=== PATIENT | male | born 1970 | race Caucasian/White ===

== ENCOUNTER 2023-04-17 12:39 | Inpatient (IN) | payer OTHER ==
[2023-04-17] VITALS (13 sets, daily range): BP systolic 94–118; BP diastolic 49–76; PULSE 58–93; RESP 18–32; TEMP 96.8–97.9; O2SAT 89–99
[~2023-04-17] VITALS: Ht 177.8 cm; Wt 120.0 kg
[2023-04-17] MEDS ORDERED: FUROSEMIDE 40 MG/4 ML VIAL IV ONE (13:00)
[2023-04-17] MEDS ORDERED: AZITHROMYCIN 500MG/ 250ML 250 ML IV ONE (13:00)
[2023-04-17] MEDS ORDERED: cefTRIAXone 1GM/50ML D5W 50 ML IV ONE (13:00)
[2023-04-17] MEDS ORDERED: SODIUM CHLORIDE 0.9% 1,000 ML IV ONE ×2 (13:00)
[2023-04-17] MEDS ORDERED: MIDAZOLAM DRIP 50 mg/50mL 50 ML IV ONE (13:07)
[2023-04-17] MEDS ORDERED: ETOMIDATE (2MG/ML) 20ML VIAL IV ONE ×2 (13:07→13:30)
[2023-04-17] MEDS ORDERED: SUCCINYLCHOLINE CHLORIDE 20 MG/ML 10ML VIAL IV ONE ×2 (13:08→13:30)
[2023-04-17] MEDS: MIDAZOLAM DRIP 50 mg/50mL 50 ML IV SCH ×2 (13:21→22:42)
[2023-04-17 13:53] LABS: Base Excess -10.2 mmol/L (-2.0-2.0)
[2023-04-17 14:01] LABS: Albumin 2.2 g/dL (3.4-5.0); BUN/Creatinine Ratio 13.3 (10.0-20.0); Calcium 7.4 mg/dL (8.5-10.1); Potassium 4.8 mmol/L (3.5-5.1)
[2023-04-17 14:04] LABS: Bilirubin, Total 3.4 mg/dL (0.2-1.0); Total Protein 7.5 g/dL (6.4-8.2)
[2023-04-17 14:05] LABS: Lactic Acid w/Reflex 3.3 mmol/L (0.4-2.0)
[2023-04-17 14:06] LABS: Basophils # (auto) 0 10 ^3/uL (0-0.2); Eosinophils # (auto) 0 10 ^3/uL (0-0.8); Lymphocytes # (auto) 0.2 10 ^3/uL (0.4-5.4); Mean Corpuscular Hgb Conc. 29.8 g/dL (32.0-36.0)
[2023-04-17 14:08] LABS: Basophils % (auto) 0.2 % (0.0-2.0); Hematocrit 39.6 % (41.0-53.0); Hemoglobin 11.8 g/dL (13.5-17.5); Lymphocytes % (auto) 0.8 % (10.0-50.0); Mean Corpuscular Hemoglobin 25.9 pg (28.0-32.0); Mean Corpuscular Volume 86.8 fL (80.0-100.0); Monocytes # (auto) 0.5 10 ^3/uL (0-1.3); Monocytes % (auto) 2.4 % (0.0-12.0); Neutrophils # (auto) 20.8 10 ^3/uL (1.6-8.6); Neutrophils % (auto) 96.6 % (37.0-80.0); Red Blood Cells 4.56 10^6/uL (4.5-5.90); White Blood Cell 21.5 10^3/uL (4.4-10.8)
[2023-04-17 14:37] LABS: Base Excess -9.5 mmol/L (-2.0-2.0)
[2023-04-17 15:08] LABS: Urine Bacteria FEW /hpf (None Seen); Urine Blood 1+ /uL (Negative); Urine Clarity Clear (Clear); Urine Color PINK (Yellow); Urine Hyaline Cast FEW /lpf (0 - 2); Urine Protein, UAD 2+ (Negative); Urine WBC 3 /hpf (0 - 3); Urine pH 5.5 (5.0-8.0)
[2023-04-17 15:15] LABS: INR 1.66 (0.9-1.15); Partial Thromboplastin Time 34.4 SEC (24.5-34.5); Prothrombin Time 16.9 sec (9.3-11.8)
[2023-04-17] MEDS: NOREPINEPHRINE 8 MG/250ML KIT 250 ML IV SCH (15:15)
[2023-04-17] MEDS ORDERED: NOREPINEPHRINE 8 MG/250ML KIT 250 ML IV ONE (15:15)
[2023-04-17 15:22] LABS: Alcohol, Urine < 3.0 mg/dL (0-10); Barbiturate Scree,Urine NEGATIVE (NEGATIVE); Benzodiazephine Screen, Urine NEGATIVE (NEGATIVE); Cocaine Screen, Urine NEGATIVE (NEGATIVE); Opiate Scree,Urine NEGATIVE (NEGATIVE); Phencyclidine Screen, Urine NEGATIVE (NEGATIVE)
[2023-04-17 15:28] LABS: Red Cell Distribution Width 20.9 % (11.8-14.3)
[2023-04-17] MEDS ORDERED: HEPARIN SODIUM (PORCINE) 5000 UNITS/ML 1ML VIAL ONE (15:29)
[2023-04-17] MEDS: DOPamine 1600MCG/ML D5W 250 ML IV SCH ×2 (15:30→22:43)
[2023-04-17 15:31] LABS: Amphetamine Screen, Urine POSITIVE (NEGATIVE); Cannabinoid Screen, Urine POSITIVE (NEGATIVE)
[2023-04-17] MEDS: EPINEPHrine HCL 250 ML IV SCH ×2 (15:33→22:46)
[2023-04-17] MEDS ORDERED: EPINEPHrine HCL 250 ML IV ONE (15:33)
[2023-04-17] MEDS ORDERED: DOBUTamine 1000MCG/ML 250 ML IV ONE (16:00)
[2023-04-17] MEDS ORDERED: IOHEXOL 350 MG/ML 100ML IJ ONE (16:31)
[2023-04-17 16:41] LABS: Anisocytosis Slight; Platelet Estimate Adequate
[2023-04-17] MEDS ORDERED: ATOR40TA52 PO (17:03)
[2023-04-17] MEDS ORDERED: EMPA1TAB PO (17:03)
[2023-04-17 17:32] LABS: Cholesterol < 50 mg/dL (< 200)
[2023-04-17 17:35] LABS: HDL Cholesterol 9 mg/dL (40-59); LDL Cholesterol 27 mg/dL (< 100); Triglycerides 65 mg/dL (< 150)
[2023-04-17] MEDS ORDERED: HEPARIN SODIUM (PORCINE) 5000 UNITS/ML 1ML VIAL IV ONE (18:00)
[2023-04-17] MEDS: FUROSEMIDE 40 MG/4 ML VIAL IV SCH (18:30)
[2023-04-17] MEDS ORDERED: VANCOMYCIN PER PHARMACY 0 MG IV SCH (19:45)
[2023-04-17] MEDS ORDERED: SODIUM CHLORIDE 0.9% 1,000 ML IV SCH (19:45)
[2023-04-17] MEDS ORDERED: ONDANSETRON HCL 4 MG/2 ML VIAL IV PRN (19:45)
[2023-04-17] MEDS ORDERED: VANCOMYCIN 1GM/250ML 250 ML IV ONE (20:00)
[2023-04-17 20:29] LABS: Hemoglobin 12.5 g/dL (13.5-17.5); Mean Corpuscular Volume 83.4 fL (80.0-100.0); White Blood Cell 27.2 10^3/uL (4.4-10.8)
[2023-04-17 20:31] LABS: Hematocrit 40.6 % (41.0-53.0); Mean Corpuscular Hemoglobin 25.7 pg (28.0-32.0); Mean Corpuscular Hgb Conc. 30.9 g/dL (32.0-36.0); Red Blood Cells 4.87 10^6/uL (4.5-5.90)
[2023-04-17 20:32] LABS: Red Cell Distribution Width 20.9 % (11.8-14.3)
[2023-04-17 20:34] LABS: Basophils % (manual) 0 (0.0-2.0); Blast Cells 0; Eosinophils % (manual) 0 (0-7); Lymphocytes % (manual) 0 (10.0-50.0); Metamyelocytes % 0; Myelocytes % 0; Promyelocytes % 0; Reactive Lymphocytes 0
[2023-04-17] MEDS ORDERED: DEXTROSE (50%) 50ML SYRG IV ONE ×2 (20:45→22:15)
[2023-04-17 20:49] LABS: Anisocytosis Slight; Band Neutrophils % (manual) 26; Monocytes % (manual) 9 (0-12); Platelet Estimate Adequate
[2023-04-17 20:50] LABS: Large Platelets FEW
[2023-04-17 20:52] LABS: Base Excess -10.3 mmol/L (-2.0-2.0)
[2023-04-17 20:52] LABS: INR 1.8 (0.9-1.15); Partial Thromboplastin Time 37.6 SEC (24.5-34.5); Prothrombin Time 18.2 sec (9.3-11.8)
[2023-04-17] MEDS: DEXTROSE 10% 1,000 ML IV SCH (21:15)
[2023-04-17] MEDS: ACCU-CHEK COMFORT CURVE STRIP VI SCH ×2 (22:06→23:34)
[2023-04-17 23:28] LABS: Albumin 2.3 g/dL (3.4-5.0); BUN/Creatinine Ratio 13.3 (10.0-20.0); Magnesium 2.1 mg/dL (1.6-2.6); Potassium 5.5 mmol/L (3.5-5.1)
[2023-04-17 23:31] LABS: Bilirubin, Total 3.8 mg/dL (0.2-1.0); Total Protein 8.6 g/dL (6.4-8.2)
[2023-04-18] VITALS (104 sets, daily range): BP systolic 86–134; BP diastolic 46–95; PULSE 61–92; RESP 11–35; TEMP 96.4–98.3; O2SAT 91–100
[2023-04-18] MEDS: ACCU-CHEK COMFORT CURVE STRIP VI SCH ×22 (00:12→22:57)
[2023-04-18] MEDS ORDERED: SODIUM BICARBONATE 8.4 % INJ 50ML VIAL IV ONE ×3 (00:15→09:06)
[2023-04-18] MEDS: CEFEPIME 2GM/50ML NS 50 ML IV SCH ×3 (00:16→21:37)
[2023-04-18] MEDS: PROPOFOL 100 ML IV SCH ×3 (00:32→14:18)
[2023-04-18] MEDS: DOPamine 1600MCG/ML D5W 250 ML IV SCH ×3 (02:06→08:07)
[2023-04-18] MEDS: MIDAZOLAM DRIP 50 mg/50mL 50 ML IV SCH ×6 (02:49→20:52)
[2023-04-18] MEDS: VASOPRESSIN 20 UNITS in SODIUM CHL 0.9% 99 ML IV SCH ×3 (03:22→14:29)
[2023-04-18 03:58] LABS: Hematocrit 34.5 % (41.0-53.0); Mean Corpuscular Hemoglobin 26.2 pg (28.0-32.0)
[2023-04-18 03:59] LABS: Albumin 2.2 g/dL (3.4-5.0); Potassium 5.2 mmol/L (3.5-5.1)
[2023-04-18 04:00] LABS: Hemoglobin 10.8 g/dL (13.5-17.5); Mean Corpuscular Hgb Conc. 31.4 g/dL (32.0-36.0); Mean Corpuscular Volume 83.6 fL (80.0-100.0); Red Blood Cells 4.13 10^6/uL (4.5-5.90); White Blood Cell 21.3 10^3/uL (4.4-10.8)
[2023-04-18 04:04] LABS: BUN/Creatinine Ratio 13.5 (10.0-20.0); Bilirubin, Total 3.9 mg/dL (0.2-1.0); Total Protein 8.3 g/dL (6.4-8.2)
[2023-04-18] MEDS: EPINEPHrine HCL 250 ML IV SCH (04:27)
[2023-04-18 04:50] LABS: Red Cell Distribution Width 20.4 % (11.8-14.3)
[2023-04-18 04:51] LABS: Basophils % (manual) 0 (0.0-2.0); Blast Cells 0; Eosinophils % (manual) 0 (0-7); Monocytes % (manual) 0 (0-12); Myelocytes % 0; Promyelocytes % 0; Reactive Lymphocytes 0
[2023-04-18] MEDS ORDERED: DEXTROSE (50%) 50ML SYRG IV ONE (05:30)
[2023-04-18] MEDS: NOREPINEPHRINE 8 MG/250ML KIT 250 ML IV SCH (05:31)
[2023-04-18] MEDS ORDERED: PHENYLEPHRINE IV 250 ML IV ONE (05:33)
[2023-04-18] MEDS ORDERED: DEXTROSE 50% SYRINGE 50 ML IV ONE (05:33)
[2023-04-18 06:12] LABS: Anisocytosis Slight; Band Neutrophils % (manual) 14; Lymphocytes % (manual) 2 (10.0-50.0); Metamyelocytes % 1; Platelet Estimate Adequate
[2023-04-18] MEDS: FUROSEMIDE 40 MG/4 ML VIAL IV SCH (06:21)
[2023-04-18] MEDS: PHENYLEPHRINE IV 250 ML IV SCH ×3 (06:27→21:36)
[2023-04-18] MEDS: DEXTROSE 10% 1,000 ML IV SCH ×2 (06:48→18:54)
[2023-04-18] MEDS ORDERED: DOPamine 3200MCG/ML 250 ML IV SCH ×2 (07:30→16:15)
[2023-04-18] MEDS ORDERED: DOPamine 1600MCG/ML D5W 250 ML IV ONE (08:07)
[2023-04-18] MEDS ORDERED: fentaNYL Drip 2500mCg/250mlNS 250 ML IV ONE (09:07)
[2023-04-18] MEDS: PANTOPRAZOLE 40 MG/10 ML VIAL INJ IV SCH (09:08)
[2023-04-18] MEDS: NOREPINEPHRINE BITARTRATE 32 MG in SODIUM CHL 0.9% 218 ML IV SCH (09:24)
[2023-04-18] MEDS: EPINEPHrine HCL INJECTION 16 MG in D5W 5% 234 ML IV SCH (09:34)
[2023-04-18] MEDS: fentaNYL Drip 2500mCg/250mlNS 250 ML IV SCH (09:48)
[2023-04-18 11:30] LABS: Calcium 6.7 mg/dL (8.5-10.1); Potassium 4.7 mmol/L (3.5-5.1)
[2023-04-18 11:36] LABS: Albumin 2.1 g/dL (3.4-5.0); BUN/Creatinine Ratio 13.5 (10.0-20.0); Bilirubin, Total 4.2 mg/dL (0.2-1.0)
[2023-04-18 12:02] LABS: Base Excess -9.6 mmol/L (-2.0-2.0)
[2023-04-18] MEDS ORDERED: SODIUM BICARBONATE 50ML VIAL 150 ML in D5W 5% 1,000 ML IV SCH (13:15)
[2023-04-18] MEDS: HYDROCORTISONE SOD SUCC 100 MG/2ML INJ VIAL IV SCH ×2 (14:07→21:36)
[2023-04-18 15:43] LABS: Hemoglobin 11.5 g/dL (13.5-17.5); Mean Corpuscular Volume 83.7 fL (80.0-100.0)
[2023-04-18 15:44] LABS: Hematocrit 37.1 % (41.0-53.0); Red Blood Cells 4.43 10^6/uL (4.5-5.90); White Blood Cell 16.7 10^3/uL (4.4-10.8)
[2023-04-18 15:49] LABS: Red Cell Distribution Width 21.1 % (11.8-14.3)
[2023-04-18 15:51] LABS: Basophils % (manual) 0 (0.0-2.0); Blast Cells 0; Eosinophils % (manual) 0 (0-7); Metamyelocytes % 0; Myelocytes % 0; Promyelocytes % 0; Reactive Lymphocytes 0
[2023-04-18 15:58] LABS: INR 1.58 (0.9-1.15); Prothrombin Time 16.1 sec (9.3-11.8)
[2023-04-18 16:00] LABS: Albumin 2.1 g/dL (3.4-5.0); Calcium 6.9 mg/dL (8.5-10.1); Potassium 4.7 mmol/L (3.5-5.1)
[2023-04-18 16:04] LABS: Bilirubin, Total 4.3 mg/dL (0.2-1.0); Total Protein 8.3 g/dL (6.4-8.2)
[2023-04-18 16:31] LABS: Anisocytosis Slight; Band Neutrophils % (manual) 6; Lymphocytes % (manual) 3 (10.0-50.0); Monocytes % (manual) 3 (0-12); Platelet Estimate Adequate
[2023-04-18] MEDS ORDERED: DOBUTamine HCL 500 MG in D5W 5% 210 ML IV SCH (17:00)
[2023-04-18] MEDS: DOPamine 3200MCG/ML 250 ML IV SCH ×2 (17:00→21:49)
[2023-04-18] MEDS: BUMETANIDE INJECTION 25 MG in GIVE UN-DILUTED 0 ML IV SCH (17:53)
[2023-04-18 18:56] LABS: Urine Bacteria FEW /hpf (None Seen); Urine Blood 2+ /uL (Negative); Urine Clarity HAZY (Clear); Urine Color Yellow (Yellow); Urine Hyaline Cast FEW /lpf (0 - 2); Urine Protein, UAD 1+ (Negative); Urine Urobilinogen Normal (Negative); Urine WBC 4 /hpf (0 - 3)
[2023-04-18] MEDS ORDERED: VANCOMYCIN 1GM/250ML 250 ML IV ONE (20:00)
[2023-04-19] VITALS (102 sets, daily range): BP systolic 91–164; BP diastolic 51–98; PULSE 58–71; RESP 10–30; TEMP 97.5–98.4; O2SAT 78–99
[2023-04-19] MEDS: MIDAZOLAM DRIP 50 mg/50mL 50 ML IV SCH ×7 (00:01→22:38)
[2023-04-19] MEDS: ACCU-CHEK COMFORT CURVE STRIP VI SCH ×13 (00:01→20:00)
[2023-04-19] MEDS: NOREPINEPHRINE BITARTRATE 32 MG in SODIUM CHL 0.9% 218 ML IV SCH (00:46)
[2023-04-19] MEDS: VASOPRESSIN 20 UNITS in SODIUM CHL 0.9% 99 ML IV SCH ×3 (01:36→23:50)
[2023-04-19] MEDS ORDERED: DOPamine 1600MCG/ML D5W 250 ML IV ONE ×3 (03:15→06:02)
[2023-04-19] MEDS ORDERED: IODIXANOL 320MG/ML 100ML BTL IV ONE (03:21)
[2023-04-19] MEDS ORDERED: LIDOCAINE 2%HCL (LOCAL ANESTH.) INJ 20ML MDV ONE (03:21)
[2023-04-19] MEDS ORDERED: HEPARIN IN NS 1000Units/500mL 1,500 ML ONE (03:21)
[2023-04-19] MEDS ORDERED: ATROPINE SULF 1 MG/10ml SYR ONE (03:22)
[2023-04-19] MEDS ORDERED: EPINEPHrine HCL 1 MG/10 ML SYRG ONE (03:22)
[2023-04-19 03:30] LABS: Hemoglobin 12.4 g/dL (13.5-17.5); Mean Corpuscular Hemoglobin 26.2 pg (28.0-32.0); Mean Corpuscular Volume 84.6 fL (80.0-100.0); Red Blood Cells 4.73 10^6/uL (4.5-5.90); White Blood Cell 16.7 10^3/uL (4.4-10.8)
[2023-04-19 03:31] LABS: Red Cell Distribution Width 20.9 % (11.8-14.3)
[2023-04-19 03:32] LABS: Basophils % (manual) 0 (0.0-2.0); Blast Cells 0; Eosinophils % (manual) 0 (0-7); Metamyelocytes % 0; Myelocytes % 0; Promyelocytes % 0; Reactive Lymphocytes 0
[2023-04-19] MEDS ORDERED: VERAPAMIL 2.5MG/ML INJ 2ML VIAL IV ONE (03:40)
[2023-04-19] MEDS ORDERED: HEPARIN SODIUM (PORCINE) 5000 UNITS/ML 1ML VIAL ONE ×2 (03:40→03:53)
[2023-04-19 03:45] LABS: INR 1.43 (0.9-1.15); Partial Thromboplastin Time 40.3 SEC (24.5-34.5); Prothrombin Time 14.7 sec (9.3-11.8)
[2023-04-19 03:49] LABS: Calcium 6.9 mg/dL (8.5-10.1); Potassium 5.5 mmol/L (3.5-5.1)
[2023-04-19] MEDS: DEXTROSE 10% 1,000 ML IV SCH (04:15)
[2023-04-19 04:58] LABS: Anisocytosis Slight; Band Neutrophils % (manual) 5; Large Platelets FEW; Lymphocytes % (manual) 1 (10.0-50.0); Monocytes % (manual) 2 (0-12); Platelet Estimate Adequate
[2023-04-19] MEDS: HYDROCORTISONE SOD SUCC 100 MG/2ML INJ VIAL IV SCH ×3 (05:51→22:36)
[2023-04-19] MEDS: PHENYLEPHRINE IV 250 ML IV SCH ×3 (06:30→23:10)
[2023-04-19] MEDS: EPINEPHrine HCL INJECTION 16 MG in D5W 5% 234 ML IV SCH (07:30)
[2023-04-19] MEDS: fentaNYL Drip 2500mCg/250mlNS 250 ML IV SCH ×2 (08:45→22:45)
[2023-04-19] MEDS ORDERED: SODIUM BICARBONATE 8.4% INJ 50ML SYRINGE ONE (09:01)
[2023-04-19] MEDS ORDERED: SODIUM BICARBONATE 8.4 % INJ 50ML VIAL IV ONE ×2 (09:02→09:15)
[2023-04-19 09:10] LABS: Base Excess -14.9 mmol/L (-2.0-2.0)
[2023-04-19 09:13] LABS: Hemoglobin 11.9 g/dL (13.5-17.5)
[2023-04-19 09:15] LABS: Hematocrit 37.4 % (41.0-53.0); Mean Corpuscular Hemoglobin 26.2 pg (28.0-32.0); Mean Corpuscular Hgb Conc. 31.7 g/dL (32.0-36.0); Mean Corpuscular Volume 82.6 fL (80.0-100.0); Red Blood Cells 4.53 10^6/uL (4.5-5.90); Red Cell Distribution Width 20.3 % (11.8-14.3); White Blood Cell 17.3 10^3/uL (4.4-10.8)
[2023-04-19] MEDS ORDERED: SODIUM BICARBONATE 50ML VIAL 150 ML in D5W 5% 1,000 ML IV SCH (09:15)
[2023-04-19 09:31] LABS: Calcium 6.7 mg/dL (8.5-10.1)
[2023-04-19 09:36] LABS: Bilirubin, Total 3.7 mg/dL (0.2-1.0)
[2023-04-19] MEDS: PANTOPRAZOLE 40 MG/10 ML VIAL INJ IV SCH (09:44)
[2023-04-19] MEDS: ENOXAPARIN SOD 40 MG/0.4 ML SYRINGE SC SCH (09:44)
[2023-04-19] MEDS: CEFEPIME 2GM/50ML NS 50 ML IV SCH ×2 (09:44→22:37)
[2023-04-19 09:53] LABS: Potassium 5.6 mmol/L (3.5-5.1)
[2023-04-19 09:58] LABS: Band Neutrophils % (manual) 0; Basophils % (manual) 0 (0.0-2.0); Blast Cells 0; Eosinophils % (manual) 0 (0-7); Metamyelocytes % 0; Myelocytes % 0; Promyelocytes % 0; Reactive Lymphocytes 0
[2023-04-19 10:09] LABS: Base Excess -11.9 mmol/L (-2.0-2.0)
[2023-04-19] MEDS ORDERED: DEXTROSE (50%) 50ML SYRG IV PRN (10:15)
[2023-04-19] MEDS ORDERED: CALCIUM GLUC 1,000mg/50ml-NS 50 ML IV ONE ×2 (10:15→13:45)
[2023-04-19] MEDS ORDERED: ALBUTEROL SULF 2.5 MG/0.5ML(0.5%) NEB SOLN NEB ONE ×3 (10:15→19:30)
[2023-04-19] MEDS: LINEZOLID 600MG/300ML 300 ML IV SCH ×2 (10:40→22:37)
[2023-04-19] MEDS: DOPamine 3200MCG/ML 250 ML IV SCH ×2 (10:59→17:15)
[2023-04-19 12:03] LABS: Base Excess -10.2 mmol/L (-2.0-2.0)
[2023-04-19] MEDS: InsuLIN REG 1unit/0.01ml Soln (100units/ml) SC SCH ×3 (12:39→20:00)
[2023-04-19 12:47] LABS: Lymphocytes % (manual) 1 (10.0-50.0); Monocytes % (manual) 2 (0-12); Toxic Granulation Slight
[2023-04-19 12:48] LABS: Anisocytosis Slight
[2023-04-19 12:49] LABS: Platelet Estimate Adequate
[2023-04-19] MEDS ORDERED: DEXTROSE (50%) 50ML SYRG IV ONE ×2 (13:45→19:30)
[2023-04-19] MEDS ORDERED: InsuLIN REG 1unit/0.01ml Soln (100units/ml) IV ONE ×2 (13:45→19:30)
[2023-04-19] MEDS: BUMETANIDE INJECTION 25 MG in GIVE UN-DILUTED 0 ML IV SCH (13:49)
[2023-04-19 14:46] LABS: BUN/Creatinine Ratio 14.7 (10.0-20.0); Calcium 6.9 mg/dL (8.5-10.1)
[2023-04-19 14:51] LABS: Potassium 5.9 mmol/L (3.5-5.1)
[2023-04-19] MEDS ORDERED: metOLazone 5 MG TAB PO ONE (15:30)
[2023-04-19] MEDS ORDERED: SODIUM CHL 0.9% 1000 ML BAG XX ONE (15:45)
[2023-04-19] MEDS: SODIUM BICARBONATE 8.4 % INJ 50ML VIAL IV SCH ×2 (16:43→18:11)
[2023-04-19] MEDS: SODIUM ZIRCONIUM CYCL 10 GM PAK GT SCH ×2 (16:43→22:00)
[2023-04-19] MEDS: NYSTATIN TOPICAL POWDER 15GM TOP SCH (22:37)
[2023-04-19 22:54] LABS: BUN/Creatinine Ratio 14.3 (10.0-20.0); Calcium 7.1 mg/dL (8.5-10.1); Potassium 5.5 mmol/L (3.5-5.1)
[2023-04-20] VITALS (74 sets, daily range): BP systolic 23–175; BP diastolic 12–88; PULSE 48–90; RESP 0–26; TEMP 98.1–98.8; O2SAT 79–97
[2023-04-20] MEDS: ACCU-CHEK COMFORT CURVE STRIP VI SCH ×3 (00:02→07:57)
[2023-04-20] MEDS: InsuLIN REG 1unit/0.01ml Soln (100units/ml) SC SCH ×3 (00:04→07:58)
[2023-04-20] MEDS: SODIUM BICARBONATE 8.4 % INJ 50ML VIAL IV SCH ×3 (00:05→05:47)
[2023-04-20] MEDS: PROPOFOL 100 ML IV SCH (00:15)
[2023-04-20] MEDS: MIDAZOLAM DRIP 50 mg/50mL 50 ML IV SCH ×3 (02:09→09:13)
[2023-04-20 05:01] LABS: Hemoglobin 12.3 g/dL (13.5-17.5); Mean Corpuscular Hemoglobin 26.2 pg (28.0-32.0)
[2023-04-20 05:04] LABS: Hematocrit 39.6 % (41.0-53.0); Mean Corpuscular Hgb Conc. 31.1 g/dL (32.0-36.0); Mean Corpuscular Volume 84.2 fL (80.0-100.0); White Blood Cell 15.3 10^3/uL (4.4-10.8)
[2023-04-20 05:09] LABS: Red Cell Distribution Width 20.7 % (11.8-14.3)
[2023-04-20 05:11] LABS: Band Neutrophils % (manual) 0; Basophils % (manual) 0 (0.0-2.0); Blast Cells 0; Eosinophils % (manual) 0 (0-7); Metamyelocytes % 0; Myelocytes % 0; Promyelocytes % 0; Reactive Lymphocytes 0
[2023-04-20 05:14] LABS: INR 1.23 (0.9-1.15); Partial Thromboplastin Time 39.6 SEC (24.5-34.5); Prothrombin Time 12.7 sec (9.3-11.8)
[2023-04-20 05:22] LABS: Albumin 2.1 g/dL (3.4-5.0); Calcium 7.2 mg/dL (8.5-10.1); Magnesium 2.4 mg/dL (1.6-2.6); Potassium 5.2 mmol/L (3.5-5.1)
[2023-04-20 05:26] LABS: BUN/Creatinine Ratio 15.2 (10.0-20.0); Bilirubin, Total 3.2 mg/dL (0.2-1.0); Total Protein 8.7 g/dL (6.4-8.2)
[2023-04-20] MEDS: DOPamine 3200MCG/ML 250 ML IV SCH (05:46)
[2023-04-20] MEDS: HYDROCORTISONE SOD SUCC 100 MG/2ML INJ VIAL IV SCH (05:47)
[2023-04-20 05:59] LABS: Phosphorus 9.6 mg/dL (2.5-4.90)
[2023-04-20 06:02] LABS: % Iron Saturation 6.8 % (20-55)
[2023-04-20] MEDS: SODIUM ZIRCONIUM CYCL 10 GM PAK GT SCH (06:26)
[2023-04-20] MEDS ORDERED: SODIUM CHL 0.9% 1000 ML BAG XX ONE (07:00)
[2023-04-20 07:20] LABS: Base Excess -11.6 mmol/L (-2.0-2.0)
[2023-04-20] MEDS: EPINEPHrine HCL INJECTION 16 MG in D5W 5% 234 ML IV SCH (07:30)
[2023-04-20] MEDS: PHENYLEPHRINE IV 250 ML IV SCH (07:30)
[2023-04-20] MEDS: LINEZOLID 600MG/300ML 300 ML IV SCH (10:00)
[2023-04-20] MEDS: ENOXAPARIN SOD 40 MG/0.4 ML SYRINGE SC SCH (10:00)
[2023-04-20] MEDS: CEFEPIME 2GM/50ML NS 50 ML IV SCH (10:00)
[2023-04-20] MEDS: NYSTATIN TOPICAL POWDER 15GM TOP SCH (10:00)
[2023-04-20] MEDS: PANTOPRAZOLE 40 MG/10 ML VIAL INJ IV SCH (10:00)
[2023-04-20] MEDS ORDERED: MUPIROCIN 2% OINT 15gm or 22gm FOR MRSA NARES TOP ONE (10:45)
[2023-04-20] MEDS ORDERED: ATROPINE SULFATE 1 MG/1 ML VIAL ONE (10:46)
[2023-04-20] MEDS ORDERED: PHENYLEPHRINE INJ 80 MG in SODIUM CHL 0.9% 242 ML IV SCH (11:00)
[2023-04-20 12:35] LABS: Anisocytosis Slight; Lymphocytes % (manual) 1 (10.0-50.0); Monocytes % (manual) 2 (0-12); Platelet Estimate Adequate
[2023-04-20] MEDS ORDERED: MORPHINE SULFATE INJ 2 MG/ml SYRG IV PRN (14:45)
[2023-04-20] MEDS ORDERED: LORazepam 2MG/ML-1ML VIAL IV PRN (14:45)
[2023-04-20] MEDS ORDERED: EPOETIN ALFA-EPBX 10,000 UNIT/1ML VIAL SC ONE (21:00)
[2023-04-20] MEDS ORDERED: MUPIROCIN 2% OINT 15gm or 22gm FOR MRSA NARES TOP SCH (22:00)
[2023-04-22 12:32] LABS: Hepatitis A Ab IgM Negative; Hepatitis B Core IgM Negative; Hepatitis B Surface Antigen Negative (Negative); Hepatitis C Antibody Negative (Negative)
== END 2023-04-20 18:30 | DRG 720 ==
LOC: ER 12:39 → EDBD 12:39 → TELE 19:54 → ICU WEST 21:50
PROVIDERS: ADMIT Nurse Practitioner Family; ATTEND Nurse Practitioner Acute Care
PROC: 5A1945Z Respiratory Ventilation, 24-96 Consecutive Hours (ICD-10-PCS; principal; 2023-04-17)
PROC: 02HV33Z Insertion of Infusion Device into Superior Vena Cava, Percutaneous Approach (ICD-10-PCS; 2023-04-17)
PROC: B548ZZA Ultrasonography of Superior Vena Cava, Guidance (ICD-10-PCS; 2023-04-17)
PROC: 0BH17EZ Insertion of Endotracheal Airway into Trachea, Via Natural or Artificial Opening (ICD-10-PCS; 2023-04-17)
PROC: B211YZZ Fluoroscopy of Multiple Coronary Arteries using Other Contrast (ICD-10-PCS; 2023-04-19)
PROC: 4A023N7 Measurement of Cardiac Sampling and Pressure, Left Heart, Percutaneous Approach (ICD-10-PCS; 2023-04-19)
PROC: 5A1D70Z Performance of Urinary Filtration, Intermittent, Less than 6 Hours Per Day (ICD-10-PCS; 2023-04-20)
DX: A41.9 Sepsis, unspecified organism (principal); J96.01 Acute respiratory failure with hypoxia; N17.0 Acute kidney failure with tubular necrosis; R65.21 Severe sepsis with septic shock; G92.8 Other toxic encephalopathy; E43 Unspecified severe protein-calorie malnutrition; J18.9 Pneumonia, unspecified organism; E87.1 Hypo-osmolality and hyponatremia; I50.21 Acute systolic (congestive) heart failure; I27.20 Pulmonary hypertension, unspecified; D50.0 Iron deficiency anemia secondary to blood loss (chronic); E11.22 Type 2 diabetes mellitus with diabetic chronic kidney disease; E66.01 Morbid (severe) obesity due to excess calories; I42.9 Cardiomyopathy, unspecified; N30.00 Acute cystitis without hematuria; E11.51 Type 2 diabetes mellitus with diabetic peripheral angiopathy without gangrene; E11.649 Type 2 diabetes mellitus with hypoglycemia without coma; E87.5 Hyperkalemia; F15.10 Other stimulant abuse, uncomplicated; Z66 Do not resuscitate; I49.3 Ventricular premature depolarization; I13.0 Hypertensive heart and chronic kidney disease with heart failure and stage 1 through stage 4 chronic kidney disease, or unspecified chronic kidney disease; I21.A1 Myocardial infarction type 2; R79.1 Abnormal coagulation profile; I27.29 Other secondary pulmonary hypertension; L03.115 Cellulitis of right lower limb; N18.9 Chronic kidney disease, unspecified; E87.29 Other acidosis; Z99.11 Dependence on respirator [ventilator] status; Z68.38 Body mass index [BMI] 38.0-38.9, adult; Z79.899 Other long term (current) drug therapy; Z59.00 Homelessness unspecified; Z59.02 Unsheltered homelessness; Q21.10 Atrial septal defect, unspecified; Y92.89 Other specified places as the place of occurrence of the external cause
CPT/HCPCS: 31500; 36415; 36556; 36600; 70450; 71045; 71275; 80048; 80053; 80061; 80074; 80202; 80307; 81001; 82140; 82550; 82570; 82728; 82805; 82962; 83036; 83540; 83550; 83605; 83735; 83880; 84100; 84132; 84156; 84300; 84439; 84443; 84484; 85007; 85025; 85027; 85610; 85730; 86850; 86900; 86901; 87040; 87070; 87077; 87081; 87086; 87186; 87205; 90935; 93005; 93306; 93925; 93970; 94002; 94003; 94640; 96365; 96367; 96368; 96375; 99291; C9113; G0378; J0171; J0330; J0461; J0692; J0696; J1265; J1642; J2250; J2704; J7060; Q9967